=== PATIENT | female | born 1975 | race Caucasian/White ===

== ENCOUNTER 2018-04-07 14:00 | Inpatient (IN) | payer OTHER ==
[~2018-04-07] VITALS: Ht 152.4 cm; Wt 75.3 kg
== END 2018-04-12 15:24 | disposition home or self-care (01) | DRG 766 ==
LOC: OB/GYN 04-09 13:10 → LDR 04-09 13:10 → O/R 04-09 14:00 → OB/GYN 04-09 14:17
PROVIDERS: Obstetrics & Gynecology
PROC: 0UB70ZZ Excision of Bilateral Fallopian Tubes, Open Approach (ICD-10-PCS; 2018-04-09)
PROC: 0UB10ZZ Excision of Left Ovary, Open Approach (ICD-10-PCS; 2018-04-09)
PROC: 4A1HXCZ Monitoring of Products of Conception, Cardiac Rate, External Approach (ICD-10-PCS; 2018-04-09)
PROC: 4A033R1 Measurement of Arterial Saturation, Peripheral, Percutaneous Approach (ICD-10-PCS; 2018-04-09)
PROC: 10D00Z1 Extraction of Products of Conception, Low, Open Approach (ICD-10-PCS; principal; 2018-04-09 13:00)
DX: O44.03 Complete placenta previa NOS or without hemorrhage, third trimester (principal); Z3A.38 38 weeks gestation of pregnancy; Z37.0 Single live birth; Z30.2 Encounter for sterilization

== ENCOUNTER 2025-01-05 09:54 | Emergency (ER) | payer OTHER ==
[~2025-01-05] VITALS: Ht 165.1 cm; Wt 56.7 kg
[2025-01-05] MEDS ORDERED: NEXIUM 24HR20 MG (10:57)
[2025-01-05] MEDS ORDERED: TOPROL XL25 M1 PO (10:57)
[2025-01-05] MEDS ORDERED: SYNTHROID75 MCG PO (10:58)
[2025-01-05] MEDS ORDERED: HYDROXYCHLOROQ200 MG PO (10:58)
[2025-01-05] MEDS ORDERED: ADULT LOW DOSE81 M1 PO (10:59)
[2025-01-05] MEDS ORDERED: 0.9 % SODIUM CHLORIDE 1,000 ML IV STA (11:10)
[2025-01-05 12:09] LABS: BASO % 0.3 % (0.1-1.2); EOS # 0.05 (0.04-0.54); EOS % 0.8 % (0.7-7.0); HEMATOCRIT 35.3 % (34.1-44.9); HEMOGLOBIN 12.1 g/dL (11.2-15.7); LYMPH # 0.69 (1.18-3.74); LYMPH % 11.4 % (19.3-53.1); MEAN CORPUSCULAR HEMOGLOBIN 32.2 pg (25.6-32.2); MONO # 0.53 (0.24-0.82); MONO % 8.8 % (4.7-12.5); NEUT # 4.73 (1.56-6.13); NEUT % 78.4 % (34.0-71.1); PLATELET COUNT 197 K/uL (163-369); RED BLOOD COUNT 3.76 M/uL (3.93-5.22); RED CELL DISTRIBUTION WIDTH 11.2 % (11.6-14.4)
[2025-01-05 12:30] LABS: CALCIUM 9.1 mg/dL (8.5-10.1); CREATININE SERUM 0.62 mg/dL (0.55-1.02); GFR 102.31; POTASSIUM 3.2 mEq/L (3.5-5.1)
[2025-01-05 12:40] LABS: URINE APPEARANCE Clear; URINE BILIRRUBIN Negative (NEGATIVE); URINE BLOOD Negative; URINE COLOR Yellow; URINE GLUCOSE Negative (NEGATIVE); URINE KETONE Negative (NEGATIVE); URINE LEUKOCYTE Trace; URINE NITRATE Negative; URINE PROTEIN Negative (NEGATIVE); URINE UROBILINOGEN 0.2 E.U./dl
[2025-01-05 12:44] LABS: URINE BACTERIA 18.3 uL (0.0-1933); URINE EPITHELIAL CELLS 6.9 uL (0.0-38.8); URINE WBC 6.4 uL (0.0-23.2)
[2025-01-05 12:51] LABS: INFLUENZA A AG NEGATIVE (NEGATIVE); INFLUENZA B AG NEGATIVE (NEGATIVE)
[2025-01-05 12:53] LABS: COVID-19 AG POSITIVE (NEGATIVE)
[2025-01-05] MEDS ORDERED: IPRATROPIUM/ALBUTEROL SULFATE 3 ML AMPUL.NEB IH ONE ×2 (16:30→16:43)
[2025-01-05] MEDS ORDERED: ACETAMINOPHEN 500 MG GEL..CAP PO ONE (17:52)
== END 2025-01-05 18:30 | disposition home or self-care (01) ==
LOC: ER 09:54
PROVIDERS: Emergency Medicine
DX: U07.1 COVID-19 (principal); Z91.040 Latex allergy status; Z91.041 Radiographic dye allergy status; Z88.8 Allergy status to other drugs, medicaments and biological substances